=== PATIENT | male | born 1975 | race Caucasian/White ===

== ENCOUNTER 2022-03-22 09:06 | Inpatient (IN) | payer MEDICARE, MEDICAID ==
[~2022-03-22] VITALS: Ht 152.4 cm; Wt 54.1 kg
[2022-03-22] MEDS ORDERED: NICARDIPINE 100MCG/ML 10ML VIAL (CATH LAB) IV ONE (10:01)
[2022-03-22] MEDS ORDERED: HEPARIN SODIUM 1,000 UNIT/1ML VIAL IV ONE (10:01)
[2022-03-22] MEDS ORDERED: NITROGLYCERIN 50MCG/ML 10ML VIAL (CATH LAB) IV ONE (10:01)
[2022-03-22] MEDS ORDERED: LISI2.5T47 MT (10:03)
[2022-03-22] MEDS ORDERED: TAMS-11 MT (10:03)
[2022-03-22] MEDS ORDERED: SITA50TA3 MT (10:03)
[2022-03-22] MEDS ORDERED: EMPA10TA MT (10:03)
[2022-03-22] MEDS ORDERED: ATOR80TA MT (10:03)
[2022-03-22] MEDS ORDERED: METF-414 MT (10:03)
[2022-03-22] MEDS ORDERED: IODIXANOL 320MG/ML 100 ML BOTTLE IV ONE ×2 (12:07→13:12)
[2022-03-22] MEDS ORDERED: LIDOCAINE HCL 1% 20ML VIAL (Pyxis) INJ ONE (12:07)
[2022-03-22] MEDS ORDERED: FENTANYL CITRATE/PF 50MCG/ML 2ML VIAL ONE (12:08)
[2022-03-22] MEDS ORDERED: MIDAZOLAM HCL 2 MG/2 ML VIAL ONE (12:08)
[2022-03-22] MEDS ORDERED: IOHEXOL-300 100 ML BOTTLE ONE (13:06)
[2022-03-22] MEDS ORDERED: CLOPIDOGREL 75MG TABLET ONE (13:21)
[2022-03-22] MEDS ORDERED: ASPIRIN 325MG TABLET ONE (13:21)
[2022-03-22] MEDS ORDERED: DEXTROSE 50% WATER 50ML SYRINGE IV PRN (13:45)
[2022-03-22 14:00] VITALS: BP 143/75
[2022-03-22 14:37] VITALS: BP 143/74
[2022-03-22] MEDS: LISINOPRIL 2.5MG TABLET PO SCH (15:20)
[2022-03-22 16:00] VITALS: BP 136/73
[2022-03-22] MEDS: BLOOD SUGAR DIAGNOSTIC STRIP TEST SCH ×2 (17:30→21:00)
[2022-03-22 18:00] VITALS: BP 141/69
[2022-03-22] MEDS ORDERED: ONDANSETRON HCL 4MG/2ML INJ IV PRN (18:00)
[2022-03-22] MEDS: INSULIN LISPRO 100 UNITS/ML SUBCUT SCH ×2 (18:43→21:00)
[2022-03-22 20:00] VITALS: BP 142/80
[2022-03-22] MEDS ORDERED: ATORVASTATIN CALCIUM 40MG TABLET PO SCH (21:00)
[2022-03-22 22:00] VITALS: BP 96/57
[2022-03-23] VITALS (10 sets, daily range): BP systolic 93–120; BP diastolic 52–79
[2022-03-23 06:13] LABS: BASOPHILS % 0.5 % (0.0-2.0); EOSINOPHILS % 0.5 % (0.0-5.0); HEMATOCRIT. 34.7 % (42.0-52.0); HEMOGLOBIN. 11.9 g/dL (14.0-18.0); LYMPHOCYTES % 15.5 % (20.0-50.0); MEAN CORPUSCULAR HEMOGLOBIN 28.8 pg (28.0-32.0); MEAN CORPUSCULAR VOLUME 84.2 fL (80.0-94.0); MEAN PLATELET VOLUME 7.9 fl (7.4-10.4); MONOCYTES % 7.8 % (2.0-8.0); NEUTROPHILS % 75.7 % (40.0-76.0); PLATELET 268 x1000/uL (130-400); RED BLOOD CELL COUNT 4.12 mill/uL (4.7-6.1); RED CELL DISTRIBUTION WIDTH 13.9 % (11.6-14.6)
[2022-03-23 06:43] LABS: CHLORIDE 107 mEq/L (98-107)
[2022-03-23] MEDS: BLOOD SUGAR DIAGNOSTIC STRIP TEST SCH ×2 (07:15→12:30)
[2022-03-23] MEDS: INSULIN LISPRO 100 UNITS/ML SUBCUT SCH ×2 (08:00→12:39)
[2022-03-23] MEDS: LISINOPRIL 2.5MG TABLET PO SCH (08:41)
[2022-03-23] MEDS ORDERED: ASPIRIN 81MG TABLET PO SCH (09:00)
[2022-03-23] MEDS ORDERED: CLOPIDOGREL 75MG TABLET PO SCH (09:00)
[2022-03-23] MEDS ORDERED: MAGNESIUM 2 G PREMIX 50 ML IV NR (10:30)
== END 2022-03-23 14:40 | disposition home or self-care (01) | DRG 247 ==
LOC: CCL 09:06 → 5EST 09:07
PROVIDERS: ADMIT Specialist; ATTEND Specialist
PROC: 027034Z Dilation of Coronary Artery, One Artery with Drug-eluting Intraluminal Device, Percutaneous Approach (ICD-10-PCS; principal; 2022-03-22)
PROC: B211YZZ Fluoroscopy of Multiple Coronary Arteries using Other Contrast (ICD-10-PCS; 2022-03-22)
PROC: 4A023N7 Measurement of Cardiac Sampling and Pressure, Left Heart, Percutaneous Approach (ICD-10-PCS; 2022-03-22)
DX: I25.10 Atherosclerotic heart disease of native coronary artery without angina pectoris (principal); I45.10 Unspecified right bundle-branch block; E11.9 Type 2 diabetes mellitus without complications; E78.5 Hyperlipidemia, unspecified; Z20.822 Contact with and (suspected) exposure to COVID-19; I10 Essential (primary) hypertension; I25.2 Old myocardial infarction; Z79.02 Long term (current) use of antithrombotics/antiplatelets; Z79.82 Long term (current) use of aspirin; Z79.84 Long term (current) use of oral hypoglycemic drugs; Z72.0 Tobacco use; Z79.899 Other long term (current) drug therapy
CPT/HCPCS: 36415; 80048; 82962; 83735; 85025; 85347; 87426; 92928; 93458; C1769; C1874; C1887; C1893; C9803; J1644; J1815; J2250; J2405; J3010; J3475; J3490; Q9967